=== PATIENT | female | born 1985 | race Caucasian/White ===

== ENCOUNTER 2016-11-24 11:48 | Emergency (ER) | payer SELFPAY ==
[2016-11-24 12:17] VITALS: BMI 30.7
--- NOTE | 2016-11-24 13:29 | ED PDOC ---
Arrival/HPI - General Chief Complaint: Abdominal Pain Time Seen by Provider: 11/24/16 12:24 Historian: Patient - History of Present Illness Narrative History of Present Illness (Text): 11/24/16 13:28 31 year old female who denies past medical history presents to the emergency department with 3 day duration of nausea, nasal congestion, sore throat, trouble swallowing due to pain, headache and epigastric pain. She also had five episodes of non-bloody diarrhea yesterday. No sick contacts or recent travel. She is able to tolerate PO fluids and food but food is a little hard to swallow because of pain. No change in voice. No throat closing sensation. No fever, chills or bodyaches. She also states that this is the 3rd out of 5 days of her menstraul cycle. She denies any lower abdominal pain. She denies vaginal discharge or foul odor. She days any urinary symptoms such as dysuria, frequency or urgency. PMD: None Time/Duration: < week Symptom Onset: Gradual Symptom Course: Unchanged Modifying Factors (Text): None Past Medical History - Provider Review Nursing Documentation Reviewed: Yes - Travel History Have you recently traveled outside [place] w/in the past 3 mons?: No - Infectious Disease Hx of Infectious Diseases: None - Tetanus Immunization Tetanus Immunization: Unknown - Cardiac Hx Cardiac Disorders: No (denies) - Pulmonary Hx Respiratory Disorders: No (denies) - Neurological Hx Neurological Disorder: No (denies) - HEENT Hx HEENT Disorder: No (denies) - Renal Hx Renal Disorder: No (denies) - Endocrine/Metabolic Hx Endocrine Disorders: No (denies) - Hematological/Oncological Hx Blood Disorders: No (denies) - Integumentary Hx Dermatological Disorder: No (denies) - Musculoskeletal/Rheumatological Hx Falls: No - Gastrointestinal Other/Comment: appendicitis - Genitourinary/Gynecological Hx Genitourinary Disorders: No (denies) - Psychiatric Hx Depression: No Hx Emotional Abuse: No Hx Physical Abuse: No Hx Substance Use: No - Suicidal Assessment Feels Threatened In Home Enviroment: No Family/Social History - Physician Review Nursing Documentation Reviewed: Yes Family/Social History: Unknown Family HX Smoking Status: Never Smoked Hx Alcohol Use: No Hx Substance Use: No Hx Substance Use Treatment: No Allergies/Home Meds Allergies/Adverse Reactions: Allergies No Known Allergies Allergy (Verified 11/24/16 12:18) Review of Systems - Physician Review All systems were reviewed & negative as marked: Yes - Review of Systems ENT: Sore Throat, Sinus Congestion Gastrointestinal: Abdominal Pain, Diarrhea, Nausea Neurological: Headache Physical Exam Vital Signs Reviewed: Yes Vital Signs Temp Pulse Resp BP Pulse Ox 11/24/16 18:45 94 H 18 104/61 99 11/24/16 15:57 98.9 F 109 H 16 103/52 L 97 11/24/16 12:12 100.6 F H 147 H 20 109/79 97 Temperature: Febrile Blood Pressure: Normal Pulse: Tachycardic Respiratory Rate: Normal Appearance: Positive for: Well-Appearing, Non-Toxic, Uncomfortable Pain Distress: None Mental Status: Positive for: Alert and Oriented X 3 - Systems Exam Head: Present: Atraumatic, Normocephalic Pupils: Present: PERRL Extroacular Muscles: Present: EOMI Conjunctiva: Present: Normal Mouth: Present: Moist Mucous Membranes Pharnyx: Present: ERYTHEMA (Mild). No: EXUDATE Neck: Present: Normal Range of Motion. No: Meningeal Signs Respiratory/Chest: Present: Clear to Auscultation, Good Air Exchange. No: Respiratory Distress, Accessory Muscle Use Cardiovascular: Present: Regular Rate and Rhythm, Normal S1, S2. No: Murmurs Abdomen: Present: Normal Bowel Sounds. No: Tenderness, Distention, Peritoneal Signs Back: Present: Normal Inspection. No: CVA Tenderness, Midline Tenderness Upper Extremity: Present: Normal Inspection, NORMAL PULSES, Neurovascularly Intact. No: Cyanosis, Edema Lower Extremity: Present: Normal Inspection, NORMAL PULSES, Neurovascularly Intact. No: Edema Neurological: Present: GCS=15, CN II-XII Intact, Speech Normal Skin: Present: Warm, Dry, Normal Color. No: Rashes Psychiatric: Present: Alert, Oriented x 3, Normal Insight, Normal Concentration Medical Decision Making ED Course and Treatment: Impression:31 year old female who denies past medical history presents to the emergency department with 3 day duration of nausea, nasal congestion, sore throat, trouble swallowing due to pain, headache, and epigastric pain. Also five episodes of non-bloody diarrhea yesterday Differential Diagnosis included but are not limited to: Influenza, viral syndrome vs pharyngitis Plan: -- Chest X-ray -- Tylenol -- Labs -- IVF -- Reassess and disposition Prior Visits: Notes and results from previous visits were reviewed. Patient last seen in the ED on 05/25/13 for vomiting and admitted for acute appendicitis. Progress Notes: chest xray Creator : Yovany Smith MD 11/24/2016 15:01 IMPRESSION: No active disease. Labs reviewed. WBC 15 due to dehydrated and pharygitis/viral syndrome. LA normal UA negative. CXR negative. Patient improved significantly throughout her stay. She was hydrated well and treated with Tylenol. Her heart was elevated most likely to due to low fever and dehydration. Her menstraul cycle added to her dehydration. She stated her symptoms resolved except she still had a mild sore throat. She was able to drink orally adequate fluids in the ED without vomiting. She did not have diarrhea during her ED stay. Patient was advised in [place] that she needed to complete the course of antibiotics. She was advised to return to the ED if symptoms worsen or any other concern. - Lab Interpretations Lab Results: 11/24/16 14:35 11/24/16 14:35 Lab Results 11/24/16 16:53: pO2 71 H, VBG pH 7.33, VBG pCO2 42.0, VBG HCO3 22.1, VBG Total CO2 23.4, VBG O2 Sat (Calc) 96.5 H, VBG Base Excess -3.7 L, VBG Potassium 3.6, Glucose 113 H, Lactate 0.8, FiO2 21.0, Sodium 137.0, Chloride 110.0 H, Venous Blood Potassium 3.6 11/24/16 14:35: Sodium 135, Potassium 3.7, Chloride 100, Carbon Dioxide 23, Anion Gap 16, BUN 8, Creatinine 0.6, Est GFR ( Amer) > 60, Est GFR (Non- Af Amer) > 60, Random Glucose 116 H, Calcium 9.5, Total Bilirubin 0.9, AST 38, ALT 71 H, Alkaline Phosphatase 84, Total Protein 9.2 H, Albumin 4.7, Globulin 4.5, Albumin/Globulin Ratio 1.0 L, Lipase 32 11/24/16 14:35: WBC 15.8 H, RBC 5.01, Hgb 15.3, Hct 42.8, MCV 85.4, MCH 30.5, MCHC 35.7, RDW 12.8, Plt Count 306, MPV 8.7, Gran % 91.5 H, Lymph % (Auto) 6.7 L , Mchenry % (Auto) 1.7, Eos % (Auto) 0.0 L, Baso % (Auto) 0.1, Gran # 14.41 H, Lymph # 1.1 L, Mchenry # 0.3, Eos # 0.0, Baso # 0.01 11/24/16 14:25: Urine Color Yellow, Urine Appearance Sl cloudy, Urine pH 6.0, Ur Specific [place] 1.025, Urine Protein Trace H, Urine Glucose (UA) Negative, Urine Ketones Trace H, Urine Blood Large H, Urine Nitrate Negative, Urine Bilirubin Negative, Urine Urobilinogen 0.2, Ur Leukocyte Esterase Negative, Urine RBC 20 - 25, Urine WBC 1 - 3, Ur Epithelial Cells 1 - 3, Urine Bacteria Few - RAD Interpretation Radiology Orders: 11/24/16 13:31 CXR [CHEST PORTABLE] [RAD] Stat - Medication Orders Current Medication Orders: Discontinued Medications Acetaminophen (Tylenol 325mg Tab) 975 mg PO STAT STA Stop: 11/24/16 13:31 Last Admin: 11/24/16 14:15 Dose: 975 mg Amoxicillin/Clavulanate Potassium (Augmentin 875 Mg-125 Mg Tab) 1 tab PO STAT STA PRN Reason: Protocol Stop: 11/24/16 17:51 Last Admin: 11/24/16 18:38 Dose: 1 tab Sodium Chloride (Sodium Chloride 0.9%) 1,000 mls @ 999 mls/hr IV .Q1H1M STA Stop: 11/24/16 14:30 Last Admin: 11/24/16 14:16 Dose: 999 mls/hr Sodium Chloride (Sodium Chloride 0.9%) 1,000 mls @ 999 mls/hr IV .Q1H1M STA Stop: 11/24/16 17:12 Last Admin: 11/24/16 16:13 Dose: 999 mls/hr - Scribe Statement The provider has reviewed the documentation as recorded by the Andreea Willis Provider Scribe Attestation: All medical record entries made by the Arnoldibradha were at my direction and personally dictated by me. I have reviewed the chart and agree that the record accurately reflects my personal performance of the history, physical exam, medical decision making, and the department course for this patient. I have also personally directed, reviewed, and agree with the discharge instructions and disposition. Disposition/Present on Arrival - Present on Arrival Any Indicators Present on Arrival: No History of DVT/PE: No History of Uncontrolled Diabetes: No Urinary Catheter: No History of Decub. Ulcer: No History Surgical Site Infection Following: None - Disposition Have Diagnosis and Disposition been Completed?: Yes Diagnosis: Pharyngitis, Dehydration Disposition: HOME/ ROUTINE Disposition Time: 18:45 Patient Plan: Discharge Condition: IMPROVED Discharge Instructions (ExitCare): Dehydration (ED), Pharyngitis (ED) Additional Instructions: Ms Arreola, thank you for letting us take care of you today. Your provider was Dr. Harrell. You were treated for Dehydration, Pharyngitis. The emergency medical care you received today was directed at your acute symptoms. If you were prescribed any medication, please fill it and take as directed. It may take several days for your symptoms to resolve. Return to the Emergency Department if your symptoms worsen, do not improve, or if you have any other problems. Please contact your doctor or call one of the physicians/clinics you have been referred to that are listed on the Patient Visit Information form that is included in your discharge packet. Bring any paperwork you were given at discharge with you along with any medications you are taking to your follow up visit. Our treatment cannot replace ongoing medical care by a primary care provider (PCP) outside of the emergency department. Thank you for allowing the [facility] team to be part of your care today. If you had an X-Ray or CT scan: A Radiologist will review the ED reading if any change in treatment is needed we will contact you. If you had a blood, urine, or wound culture: It will take several days for the results, if any change in treatment is needed we will contact you. If you had an STI test: It will take 48 hours for the results. Please call after 1 week if you have not heard back. Prescriptions: Amoxicillin/Clavulanate [Augmentin 875 MG-125 MG] 1 tab PO BID #20 tab Famotidine [Pepcid] 20 mg PO DAILY #30 tab Ondansetron ODT [Zofran ODT] 4 mg PO Q6 #14 odt Referrals: [facility] at [facility] [place] [Outside] - Follow up with primary Forms: [employer] ([place]), WORK NOTE
[2016-11-24] MEDS ORDERED: Sodium Chloride 0.9% 1,000 ML IV STA ×2 (13:30→16:12)
[2016-11-24 14:51] LABS: ADD MANUAL DIFF? NO
--- NOTE | 2016-11-24 15:00 | RAD ---
HISTORY: cough r/o PNA COMPARISON: No prior. FINDINGS: LUNGS: No active pulmonary disease. PLEURA: No significant pleural effusion identified, no pneumothorax apparent. CARDIOVASCULAR: Normal. OSSEOUS STRUCTURES: No significant abnormalities. VISUALIZED UPPER ABDOMEN: Normal. OTHER FINDINGS: None. IMPRESSION: No active disease.
[2016-11-24 15:03] LABS: BASO # 0.01 K/mm3 (0.0-2.0); BASO % 0.1 % (0.0-3.0); GRAN # 14.41 (1.4-6.5); GRAN % 91.5 % (50.0-68.0); HEMATOCRIT 42.8 % (36.0-48.0); LYMPH # 1.1 (1.2-3.4); LYMPH % 6.7 % (22.0-35.0); MEAN CELL VOLUME 85.4 fL (80.0-105.0); MEAN CORPUSCULAR HEMOGLOBIN 30.5 pg (25.0-35.0); MEAN CORPUSCULAR HGB CONC 35.7 g/dl (31.0-37.0); MEAN PLATELET VOLUME 8.7 fl (7.0-11.0); MONO # 0.3 (0.1-0.6); MONO % 1.7 % (1.0-6.0); PLATELET COUNT 306 10^3/uL (120.0-450.0); RED CELL DISTRIBUTION WIDTH 12.8 % (11.5-14.5); WHITE BLOOD COUNT 15.8 10^3/ul (4.5-11.0)
[2016-11-24 15:08] LABS: ALKALINE PHOSPHATASE 84 U/L (38-133); ALT/SGPT 71 U/L (7-56); AST/SGOT 38 U/L (15-39); BILIRUBIN,TOTAL 0.9 mg/dL (0.2-1.3); BLOOD UREA NITROGEN 8 mg/dL (7-21); CALCIUM 9.5 mg/dL (8.4-10.5); CARBON DIOXIDE 23 mmol/L (21-33); CHLORIDE 100 mmol/L (98-107); GFR AFRICAN-AMERICAN > 60; GLUCOSE,RANDOM 116 mg/dL (70-110); LIPASE 32 U/L (23-300); POTASSIUM 3.7 mmol/L (3.6-5.0); SODIUM 135 mmol/L (132-148); TOTAL PROTEIN 9.2 g/dL (5.8-8.3)
[2016-11-24 15:58] VITALS: TEMP 98.9
[2016-11-24 16:25] LABS: URINE BILIRUBIN NEGATIVE (NEGATIVE); URINE BLOOD LARGE (NEGATIVE); URINE GLUCOSE (UA) NEGATIVE (NEGATIVE); URINE KETONE TRACE mg/dL (NEGATIVE); URINE LEUKOCYTE ESTERASE NEGATIVE Leu/uL (NEGATIVE); URINE PROTEIN TRACE mg/dL (<30 mg/dL); URINE UROBILINOGEN 0.2 E.U./dL (<1 E.U./dL)
[2016-11-24 16:31] LABS: URINE APPEARANCE SL CLOUDY (CLEAR); URINE COLOR YELLOW (YELLOW)
[2016-11-24 16:53] LABS: URINE BACTERIA FEW (NEG); URINE RBC 20 - 25 /hpf (0-2)
[2016-11-24 17:03] LABS: VENOUS BLOOD GAS BASE EXCESS -3.7 mmol/L (0.0-2.0); VENOUS BLOOD PH 7.33 (7.32-7.43)
[2016-11-24] MEDS ORDERED: Amoxicillin-Clav 875-125 mg Tab PO STA (17:50)
[2016-11-24 18:46] VITALS: BP 104/61; PULSE 94; RESP 18; O2SAT 99
== END 2016-11-24 18:45 | disposition home or self-care (01) ==
LOC: ED 11:48
DX: J02.9 Acute pharyngitis, unspecified (principal); E86.0 Dehydration
CPT/HCPCS: 71010; 80053; 81001; 82803; 83690; 85025; 87804; 99284; J7040